=== PATIENT | female | born 1980 | race Caucasian/White ===

== ENCOUNTER 2022-06-21 11:04 | Emergency (ER) | payer BC, MEDICAID ==
[~2022-06-21] VITALS: Ht 170.2 cm; Wt 90.1 kg
[2022-06-21 11:40] VITALS: BP 110/69
[2022-06-21 12:44] LABS: Urine Bacteria FEW /hpf (None Seen); Urine Blood 3+ /uL (Negative); Urine Mucus FEW (None Seen); Urine Specific Gravity 1.022 (1.001-1.035); Urine WBC 152 /hpf (0 - 5); Urine WBC Clumps PRESENT /hpf (None Seen)
[2022-06-21] MEDS ORDERED: CEPH-322 PO (13:01)
== END 2022-06-21 15:55 | disposition left against medical advice (07) ==
LOC: ER 11:04
DX: S39.012A Strain of muscle, fascia and tendon of lower back, initial encounter (principal); M54.41 Lumbago with sciatica, right side; N39.0 Urinary tract infection, site not specified; F20.9 Schizophrenia, unspecified; F10.90 Alcohol use, unspecified, uncomplicated; F15.90 Other stimulant use, unspecified, uncomplicated; Z87.891 Personal history of nicotine dependence; Z53.29 Procedure and treatment not carried out because of patient's decision for other reasons; W18.39XA Other fall on same level, initial encounter; Y93.89 Activity, other specified; Y92.89 Other specified places as the place of occurrence of the external cause; Y99.8 Other external cause status
CPT/HCPCS: 81001